=== PATIENT | female | born 1945 | race Caucasian/White ===

== ENCOUNTER → 2017-11-13 | Outpatient (REF) | payer MEDICARE, MEDICAID ==
[~2017-11-13] MED LIST: ASCO1CAP PO; ASP325 PO; ASPI-1471 PO; ATOR-1 PO; ATOR40TA24 PO; ATR80PT PO; CEPH500T7 PO; CHOL10005 PO; CIP500 PO; CITA-141 PO; CITA-156 PO; CLI150 PO; CLO75 PO; CLOP75TA43 PO; CLOT15CR67 TP; CRAN400C2 PO; CRAN500C11 PO; CYC10 PO; DIPH0.5D12 IM; FAM20 PO; FLU180SY9 IM; FLU45SYR25 IM ONLY; FURO-45 PO; FURO-47 PO; FURO40SO PO; GAB300 PO; GABA-490 PO; GARL1CAP15 PO; HUMALOG SC; INSU100C12 SQ; INSU100C14 SQ; INSU100I30 SQ; INSU100I35 SQ; INSU100V24 SQ; LANI SC; LANI SQ; LANI SUBQ; LEVI SQ; LIS5 PO; LISI-357 PO; LISI2.5T60 PO; LOR5 PO; LOR5/325 PO; MAGNESIUM; MECL-111 PO; MECL-205 PO; METF-409 PO; METF500T4 PO; NAPR-1043 PO; NEED-498 MC; NICO-180 TD; NOVOLOG SUBQ; NYST15CR32 TP; NYST15PO4 TP; NYST1POW27 TOP; OMEP-153 PO; PRAV20TA65 PO; PRAV40TA77 PO; RANI150C17 PO; SENN-187 PO; SIMV-49 PO; SPIR25TA78 PO; SYRI-1525 MC; [UNRECOGNIZED DRUG - CODE] TD; [UNRECOGNIZED DRUG - REMARK]; [UNRECOGNIZED DRUG - SUPPLY]
== END ==
LOC: ZZSENDIN 11:10
PROVIDERS: ATTEND Emergency Medicine
DX: E11.9 Type 2 diabetes mellitus without complications (principal)
CPT/HCPCS: 82310; 82374; 82435; 82565; 82947; 84132; 84295; 84520

== ENCOUNTER → 2017-11-19 | Outpatient (REF) | payer MEDICARE, MEDICAID | LOC: ZZSENDIN 11:46 | PROVIDERS: ATTEND Emergency Medicine | DX: E87.5 Hyperkalemia (principal); E11.9 Type 2 diabetes mellitus without complications | CPT/HCPCS: 82310; 82374; 82435; 82565; 82947; 83970; 84132; 84295; 84520 ==

== ENCOUNTER → 2018-01-01 | Outpatient (CLI) | payer MEDICARE, MEDICAID | LOC: LAB 14:13 | PROVIDERS: ATTEND Emergency Medicine | DX: E11.9 Type 2 diabetes mellitus without complications (principal) | CPT/HCPCS: 36415; 83036 ==

== ENCOUNTER → 2018-04-22 | Outpatient (CLI) | payer MEDICARE, MEDICAID ==
[~2018-04-22] MED LIST changes: +BLOO-1511 MC; -SPIR25TA78 PO; +SPIR25TA80 PO
[2018-04-22 10:48] LABS: PLATELET COUNT, AUTOMATED 328 K/uL (150-450)
[2018-04-22 11:05] LABS: LDL CHOLESTEROL 46 mg/dl
== END ==
LOC: LAB 09:55
PROVIDERS: ATTEND Emergency Medicine
DX: E11.9 Type 2 diabetes mellitus without complications (principal); E78.00 Pure hypercholesterolemia, unspecified; R53.83 Other fatigue; E83.52 Hypercalcemia
CPT/HCPCS: 36415; 82040; 82247; 82306; 82310; 82374; 82435; 82465; 82565; 82947; 83036; 83718; 83970; 84075; 84132; 84155; 84295; 84450; 84460; 84478; 84520; 85025

== ENCOUNTER → 2018-12-03 | Outpatient (REF) | payer MEDICARE, MEDICAID ==
[~2018-12-03] MED LIST changes: -DIPH0.5D12 IM; +DIPH0.5S2 IM; +FLU180SY11 IM; +PNEU0.5D3 IM
== END ==
PROVIDERS: ATTEND Emergency Medicine
DX: E11.9 Type 2 diabetes mellitus without complications (principal)
CPT/HCPCS: 83036